=== PATIENT | male | born 1960 | race Caucasian/White ===

== ENCOUNTER 2023-01-18 08:17 | Emergency (ER) | payer MEDICARE, OTHER, SELFPAY ==
[2023-01-18 08:34] VITALS: BP 135/72; PULSE 67; TEMP 36.6; O2SAT 98; BMI 28.3
[2023-01-18 08:46] VITALS: BP 135/72; PULSE 64; RESP 18; TEMP 36.8; O2SAT 97
--- NOTE | 2023-01-18 08:46 | W.ED.SKABFB ---
HPI - Skin/Abscess/Foreign Bdy General: Chief complaint: Skin/Abscess/Foreign Body Stated complaint: sore on Left leg Time Seen by Provider: 01/18/23 08:18 Source: patient Mode of arrival: ambulatory Limitations: no limitations History of Present Illness: Patient is a 62-year-old male who presents to ED today with what he believes could be a brown recluse bite to his left medial thigh. He states a few days ago he noticed a small red bump that has since progressed. He is complaining of burning pain to the area. He has noticed some surrounding redness and warmth. He states he has witnessed several brown recluses in his home. Patient is not running fevers. He does not generally feel ill or unwell. Patient denies any purulent or odorous drainage from the lesion. He has attempted to extract material from the bite himself by squeezing/popping. MD complaint: insect bite/sting and abscess/boil Onset (ago): day(s) Tetanus up to date: yes Location: LLE Severity: moderate Quality: burning Pain Consistency: constant Relieving factors: none Exacerbating factors: none Context: none Associated symptoms: Reports no associated symptoms; Deny chills, fever(s), nausea or vomiting Treatments prior to arrival: attempted to drain pus at home Review of Systems Const: Denies: fever(s), chills, body aches, fatigue or malaise Card: Denies: chest pain GI: Denies: nausea or vomiting Musc: Reports: extremity pain; Denies: neck pain, back pain, extremity swelling, joint pain, joint swelling, joint redness, joint warmth or limited range of motion Skin/Breast: Reports: other (possible spider bite L medial thigh) Neuro: Denies: headache(s), numbness in extremities, weakness in extremities or sensory changes Physical Exam Const: COMMON NORMALS: no acute distress, average body habitus, patient oriented x3, no limitations, alert and well nourished GENERAL APPEARANCE: cooperative Resp: COMMON NORMALS: normal respiratory effort and clear to auscultation bilaterally AUSCULTATION: clear to auscultation bilaterally Cardio: COMMON NORMALS: regular rate and regular rhythm RATE: regular rate RHYTHM: regular rhythm Extremity: GENERAL: Yes normal exam except as noted RIGHT LOWER EXTREMITY: Yes upper leg OTHER: Patient has a quarter sized erythematous with hemorrhagic center lesion to the medial aspect of his left thigh that appears consistent with a brown recluse bite. He has approximately 6 inches of surrounding erythema/cellulitis and warmth. There is no fluctuance to the lesion at this time. It is draining a scant amount of bloody like material. Neuro: COMMON NORMALS: patient oriented x3 SENSORIUM/ORIENTATION: Yes alert Course Vital Signs: Vital signs: Vital Signs Temperature 98.2 F 01/18/23 08:46 Pulse Rate 77 01/18/23 09:02 Respiratory Rate 18 01/18/23 09:02 Blood Pressure 135/72 01/18/23 09:02 Pulse Oximetry 98 01/18/23 09:02 Oxygen Delivery Me thod Room Air 01/18/23 08:46 MDM - Skin/Abscess/Foreign Bdy Medicial Decision Making Patient does have what appears to be a possible brown recluse bite to his left medial thigh with surrounding cellulitis and warmth. He will be placed on Bactrim for secondary bacterial coverage. Return ED precautions given. Discharge Plan Discharge Patient Disposition: Home Clinical Impression: Brown recluse spider bite Qualifiers: Encounter type: initial encounter Injury intent: accidental or unintentional Qualified Code(s): T63.331A - Toxic effect of venom of brown recluse spider, accidental (unintentional), initial encounter Condition: Stable Prescriptions: No Action garlic 100 mg Tablet 100 mg PO DAILY venlafaxine 150 mg capsule,extended release 24hr 150 mg PO DAILY methocarbamol 750 mg tablet 750 mg PO TID PRN (Reason: Pain) clotrimazole-betamethasone 1-0.05 % cream 1 applic TOPICAL BID PRN (Reason: Rash) nortriptyline 50 mg capsule 50 mg PO TID Discharge Orders: Discharge ED (Routine); Ordered 01/18/23 Ordered By: Isela Manning Patient Instructions: Brown Recluse Spider Bite, Brown Recluse Spider Bite (ED) Activity Restrictions/Additional Instructions: Begin antibiotics immediately. You need to seek medical re-evaluation if bite continues to worsen and you begin experiencing worsening redness, pain, drainage, or warmth. Coding Level of Care Code ED Foreign Food [employer] Specialty for Thomas Saleem
[2023-01-18 09:02] VITALS: BP 135/72; PULSE 77; RESP 18; O2SAT 98
== END 2023-01-18 09:07 | disposition home or self-care (01) ==
PROVIDERS: Emergency Provider Physician Assistant
DX: T63.331A Toxic effect of venom of brown recluse spider, accidental (unintentional), initial encounter (principal)
CPT/HCPCS: 99283

== ENCOUNTER 2023-11-06 09:25 | Outpatient (CLI) | payer MEDICARE, OTHER, SELFPAY ==
--- NOTE | 2023-11-06 09:29 | CT_ITS ---
WS: [id number] CT NECK TECHNIQUE: Contrast-enhanced CT of the neck with coronal and sagittal reformatted images. CLINICAL INFORMATION: MALIGNANT NEOPLASM OF PAROTID GLAND. NO OTHER HISTORY PROVIDED. COMPARISON: None. DLP: 232.[address] scans at [facility] use at least one of these dose optimization techniques: automated e xposure control; mA and/or kV adjustment per patient size (includes targeted exams where dose is matc hed to clinical indication); or iterative reconstruction. 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 RIGHT parotid gland is normal in appearance. Normal submandibular glands. Mild mucosal thickening in the paranasal sinuses. Mastoid air cells are well aerated. Normal posterio r nasopharynx. Normal parapharyngeal fat. No evidence of supraglottic or glottic mass. Normal subglot tic airway. Thyroid gland appears normal. Lung apices are well aerated. Moderate carotid bulb calcifi cation. Hypertrophic changes cervical spine with straightening of the normal cervical lordosis. Anter ior ankylosis cervical spine. No cervical lymphadenopathy. Surgical clips LEFT neck and LEFT supracla vicular region. A few subpectoral lymph nodes normal in size. CT/CT neck w con* [id number] IMPRESSION: 1. Postoperative changes LEFT neck dissection with resection of the LEFT parot id gland. 2. RIGHT parotid gland is normal. 3. Normal submandibular glands. 4. No evidence of supraglottic or glottic mass. 5. No cervical lymphadenopathy. 6. Moderate carotid bulb calcification. This could be further evaluated with u ltrasound. 7. No other acute findings.
--- NOTE | 2023-11-06 09:31 | CT_ITS ---
WS: [id number] CT chest w con* [id number] HISTORY: OTHER NONSPECIFIC ABNORMAL FINDING OF LUNG FIELD TECHNIQUE: Axial imaging performed through the thorax. Coronal and sagittal reformats are submitted. All CT scans at [facility] use at least one of these dose optimization techniques: automated exposure control; mA and/or kV adjustment per patient size (includes targeted exams where dose is mat ched to clinical indication); or iterative reconstruction. CONTRAST: Omnipaque 350; 75 mL IV. DLP: 440.88 mGy.cm COMPARISON: None available. Multiple attempts at retrieving outside imaging was unsuccessful. Lungs and central airway: Normal. Pleura: Normal. No pleural effusion. Heart and pericardium: Normal size heart with no pericardial effusion. Mediastinum and karlos: No mediastinum or hilar adenopathy. Vessels: Mild atherosclerosis aorta. No aneurysm. Normal size pulmonary artery. Chest wall and lower neck: No soft tissue masses. Upper abdomen: Normal appearance of the visualized liver and gallbladder. Normal portal vein. No adre nal mass. The visualized pancreas is negative. Osseous structures: No destructive process. CT/CT chest w con* [id number] IMPRESSION: 1. No pulmonary nodules or pneumonia. 2. No mediastinal or hilar adenopathy. 3. Mild atherosclerosis aorta.
[2023-11-06] MEDS: iohexol 350 mg/mL 500 mL Btl (per mL) IV ×2 (09:59→10:00)
== END 2023-11-06 09:26 | disposition home or self-care (01) ==
LOC: RAD 09:26
PROVIDERS: Absent Provider Nurse Practitioner Family; PCP Nurse Practitioner; Visit Provider Nurse Practitioner
DX: C07 Malignant neoplasm of parotid gland (principal); K11.8 Other diseases of salivary glands; I65.23 Occlusion and stenosis of bilateral carotid arteries; M45.2 Ankylosing spondylitis of cervical region
CPT/HCPCS: 70491; 71260; Q9967

== ENCOUNTER → 2024-02-25 08:59 | Outpatient (BNVA) | payer MEDICARE, OTHER, SELFPAY | PROVIDERS: PCP Nurse Practitioner; Referring Provider Nurse Practitioner; Visit Provider Internal Medicine Cardiovascular Disease | DX: I49.8 Other specified cardiac arrhythmias (principal); I45.10 Unspecified right bundle-branch block; R07.9 Chest pain, unspecified | CPT/HCPCS: 93005; 99204 ==